=== PATIENT | female | born 1960 | race Caucasian/White ===

== ENCOUNTER 2017-03-21 13:48 | Emergency (ER) ==
[2017-03-21 13:52] VITALS: BP 167/95; TEMP 98.8; BMI 31.0
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
== END 2017-03-21 16:09 | disposition home or self-care (01) ==
LOC: ED 13:48
DX: M54.2 Cervicalgia (principal); R51 Headache; V49.40XA Driver injured in collision with unspecified motor vehicles in traffic accident, initial encounter; F17.210 Nicotine dependence, cigarettes, uncomplicated
CPT/HCPCS: 99283